=== PATIENT | female | born 1960 | race Caucasian/White ===

== ENCOUNTER 2018-11-17 05:43 | Day surgery (SDC) | payer OTHER ==
[2018-11-17 07:22] LABS: INR 0.89; PROTIME 12.2 Sec (11.9-14.9)
[2018-11-17 07:23] LABS: PARTIAL THROMBOPLASTIN TIME 31.4 Sec (23.0-35.0)
[2018-11-17] MEDS ORDERED: ROPIVACAINE 0.5 % 30 ML VIAL (07:34)
[2018-11-17] MEDS ORDERED: MIDAZOLAM 1 MG/ML 2 ML INJ (07:34)
[2018-11-17] MEDS ORDERED: FENTAnyl 50 MCG/ML VIAL (07:34)
[2018-11-17] MEDS: POLYMYXIN/BACITRACIN 1L IRRIG IRR (08:57)
[2018-11-17] MEDS ORDERED: LABETALOL HCL 20MG INJ (10:03)
[2018-11-17] MEDS ORDERED: SUCCINYLCHOLINE CHLORIDE 100 MG/5 ML SYG IV (10:46)
[2018-11-17] MEDS ORDERED: SUGAMMADEX SODIUM 200 MG/2 ML VIAL IV (10:47)
[2018-11-17] MEDS ORDERED: CEFAZOLIN 1 GM INJ (10:47)
[2018-11-17] MEDS ORDERED: LIDOCAINE 100 MG SYRINGE (10:47)
[2018-11-17] MEDS ORDERED: PROPOFOL 20 ML (10:47)
[2018-11-17] MEDS ORDERED: ROCURONIUM 50 MG INJ (10:47)
[2018-11-17] MEDS ORDERED: NEOMYC/POLYMYX/BACIT 30 GM OINT (10:49)
[2018-11-17] MEDS ORDERED: LEVALBUTEROL (NEB) 0.63 MG/3 ML AMP HHN (11:30)
[2018-11-17] MEDS ORDERED: METOCLOPRAMIDE 10 MG INJ IV (11:30)
[2018-11-17] MEDS ORDERED: ALBUTEROL 0.083% (NEB) 2.5 MG/3 ML AMP HHN (11:30)
[2018-11-17] MEDS ORDERED: HYDROmorphONE 1 MG/5 ML IV SYRINGE IV ×3 (11:30)
[2018-11-17] MEDS ORDERED: ONDANSETRON 4 MG INJ IV (11:30)
[2018-11-17] MEDS ORDERED: FENTAnyl 50 MCG/ML VIAL IV ×3 (11:30)
== END 2018-11-17 13:01 | disposition home or self-care (01) ==
LOC: SDS 05:43
DX: M19.171 Post-traumatic osteoarthritis, right ankle and foot (principal); E11.9 Type 2 diabetes mellitus without complications; I10 Essential (primary) hypertension; E78.5 Hyperlipidemia, unspecified; Z79.82 Long term (current) use of aspirin; Z79.84 Long term (current) use of oral hypoglycemic drugs
CPT/HCPCS: 28725; 73610-RT; 82306; 82962; 85610; 85730